=== PATIENT | female | born 1965 | race Asian ===

== ENCOUNTER 2017-07-01 14:28 | Emergency (ER) | payer OTHER ==
[~2017-07-01] VITALS: Ht 154.9 cm; Wt 52.2 kg
[2017-07-01 14:57] VITALS: BP 125/72
== END 2017-07-01 17:16 | disposition home or self-care (01) ==
LOC: ED 14:28
DX: S76.312A Strain of muscle, fascia and tendon of the posterior muscle group at thigh level, left thigh, initial encounter (principal); X58.XXXA Exposure to other specified factors, initial encounter; Y93.89 Activity, other specified; Y92.89 Other specified places as the place of occurrence of the external cause; Y99.8 Other external cause status
CPT/HCPCS: J1885